=== PATIENT | male | born 1955 ===

== ENCOUNTER → 2018-06-11 | Outpatient (CLI) | payer OTHER | END | disposition home or self-care (01) | LOC: HKI 16:06 | DX: S46.211A Strain of muscle, fascia and tendon of other parts of biceps, right arm, initial encounter (principal); X58.XXXA Exposure to other specified factors, initial encounter; Y92.89 Other specified places as the place of occurrence of the external cause | CPT/HCPCS: Z7500 ==

== ENCOUNTER → 2018-08-06 | Outpatient (CLI) | payer OTHER | END | disposition home or self-care (01) | LOC: HKI 14:45 | DX: M66.821 Spontaneous rupture of other tendons, right upper arm (principal); M25.511 Pain in right shoulder | CPT/HCPCS: Z7500 ==